=== PATIENT | male | born 1985 | race African-American/Black ===

== ENCOUNTER 2020-04-24 08:21 | Emergency (ER) | payer OTHER ==
[~2020-04-24] VITALS: Ht 152.4 cm; Wt 63.5 kg
[2020-04-24 08:29] VITALS: BP 134/87; TEMP 98.3
== END 2020-04-24 09:23 | disposition home or self-care (01) ==
LOC: ED 08:21
DX: M79.18 Myalgia, other site (principal); R51 Headache
CPT/HCPCS: 96372; 99282; 99283; J1885